=== PATIENT | female | born 1990 | race African-American/Black ===

== ENCOUNTER 2017-02-09 12:12 | Emergency (ER) | payer OTHER ==
[2017-02-09] MEDS ORDERED: Ondansetron ODT 4 MG TAB ONE (12:33)
[2017-02-09] MEDS ORDERED: HYDROcodone/Acetaminophen 5/325 mg Tablet ONE (12:34)
== END 2017-02-09 13:20 | disposition home or self-care (01) ==
LOC: BURERS 12:12
DX: R51 Headache (principal); F41.9 Anxiety disorder, unspecified; F32.9 Major depressive disorder, single episode, unspecified
CPT/HCPCS: Q0162